=== PATIENT | female | born 1950 | race Caucasian/White ===

== ENCOUNTER → 2020-01-03 15:20 | Outpatient (CLI) | payer MEDICARE, BC, SELFPAY ==
--- NOTE | 2020-01-03 15:33 | XR_ITS ---
PROCEDURE: XR KNEE RT 3V CLINICAL INDICATION: RT KNEE PAIN COMPARISON: No exams were available for comparison FINDINGS: No fracture or dislocation. No lytic or blastic change. There is normal mineralization. There are mild osteoarthritic changes of the right knee involving all 3 compartments with small suprapatellar effusion. A faint calcific density overlies the lateral aspect of the medial compartment consistent with a loose body which is felt to be along the posterior aspect of the knee joint on the lateral view measuring 7 mm. Other findings:None. IMPRESSION: Mild osteoarthritis with suspected loose body posteriorly and medially Dictated by: Brijesh Weber MD 01/03/2020 16:07 Electronically signed by Brijesh Weber MD in [place] 01/03/2020 16:07
--- NOTE | 2020-01-03 15:33 | XR_ITS ---
PROCEDURE: XR HIP RT 2-3V W/PELVIS CLINICAL INDICATION: RT HIP PAIN COMPARISON: No exams were available for comparison FINDINGS: There are mild osteoarthritic changes of both hips as seen on the AP view of the pelvis along with osteitis pubis and degenerative disc disease with facet arthritic change at L5-S1. No fracture or dislocation. No lytic or blastic change. There are multiple pelvic phleboliths. IMPRESSION: Osteoarthritis of the hips Dictated by: Brijesh Weber MD 01/03/2020 16:05 Electronically signed by Brijesh Weber MD in [place] 01/03/2020 16:05
== END ==
PROVIDERS: PCP Family Medicine; Visit Provider Family Medicine
DX: M25.551 Pain in right hip (principal); M25.561 Pain in right knee
CPT/HCPCS: 73502; 73562

== ENCOUNTER → 2020-01-18 12:52 | Outpatient (CLI) | payer MEDICARE, BC, SELFPAY ==
--- NOTE | 2020-01-18 12:59 | XR_ITS ---
PROCEDURE: XR KNEE RT 4V CLINICAL INDICATION: Knee pain COMPARISON: XR KNEE RT 3V from 01/03/2020 FINDINGS: No fracture or dislocation. No lytic or blastic change. There is normal mineralization. There are mild osteoarthritic changes of the medial compartment and patellofemoral joint. No acute fracture or dislocation. A small calcific density is present superior to the tibial spines suggesting a loose body. This may be posterior. There is an additional calcific density overlying the lateral aspect of the medial compartment consistent with a loose body which may be posterior. Other findings:None. IMPRESSION: Osteoarthritis with loose intra-articular bodies Dictated by: Brijesh Weber MD 01/18/2020 14:18 Electronically signed by Brijesh Weber MD in [place] 01/18/2020 14:18
== END ==
PROVIDERS: PCP Family Medicine; Visit Provider Orthopaedic Surgery
DX: M25.561 Pain in right knee (principal)
CPT/HCPCS: 73564

== ENCOUNTER → 2020-10-08 09:54 | Outpatient (CLI) | payer MEDICARE, BC, SELFPAY ==
--- NOTE | 2020-10-08 09:58 | MM_ITS ---
PROCEDURE: MM DIG SCREENING MAMM BI W/CAD Digital Breast Tomosynthesis Included CLINICAL INDICATION: SCREENING There is no personal or family history of breast cancer. COMPARISON: MG MM MAMMO DIGITAL SCREENING W CAD BILAT from 09/08/2017 TECHNIQUE: Standard CC and MLO images and 3D Tomosynthesis was obtained. R2 CAD reviewed. FINDINGS: The glandular densities are seen throughout both breast primarily upper outer quadrants. There are couple of benign-appearing microcalcifications in each breast. There is a mole marker left breast. There is no new or suspicious lesion in either breast suspicious microcalcifications. There are small nodes in both axilla. IMPRESSION: Moderate breast density with no suspicious lesions seen BI-RAD Category: 2 Benign Finding(s) FOLLOW-UP: 1YR 1 Year Follow-up (A letter has been sent to the patient regarding results of the study.) Dictated by: Dr. Paramjit Lee MD 10/14/2020 08:20 Dr. Paramjit Lee MD in [place] 10/14/2020 08:20
--- NOTE | 2020-10-08 09:58 | XR_ITS ---
PROCEDURE: XR DEXA AXIAL SKELETON CLINICAL HISTORY: OSTEOPOROSIS SCREENING COMPARISON: No exams were available for comparison FINDINGS: The right hip BMD is 0.920 with a T-score of 0.6. The right hip BMD is 0.900 with a T-score of 0.5. The lumbar spine BMD is 1.143 with a T-score of 0.9. IMPRESSION: This patient is considered normal according to the World Health Organization criteria. Fracture risk is low. Based on these results a follow-up exam is recommended in 2 year. Dictated by: Brijesh Weber MD 10/09/2020 00:34 Brijesh Weber MD in [place] 10/09/2020 14:19
== END ==
PROVIDERS: PCP Family Medicine; Visit Provider Family Medicine
DX: Z12.31 Encounter for screening mammogram for malignant neoplasm of breast (principal); Z13.820 Encounter for screening for osteoporosis; Z78.0 Asymptomatic menopausal state
CPT/HCPCS: 77063; 77067; 77080

== ENCOUNTER → 2020-12-02 16:42 | Outpatient (CLI) | payer MEDICARE, BC, SELFPAY ==
--- NOTE | 2020-12-02 16:48 | XR_ITS ---
PROCEDURE INFORMATION: Exam: XR Lumbosacral Spine Exam date and time: 12/02/2020 4:48 PM Age: 70 years old Clinical indication: Sciatica; Right; Patient HX: Acute RT side sciatic pain; Additional info: Acute RT sided low back pain w/o sciatica TECHNIQUE: Imaging protocol: XR of the lumbosacral spine. Views: 4 or 5 views. COMPARISON: No relevant prior studies available. FINDINGS: Bones/joints: Degenerative facet joint arthropathy in the lower lumbar spine. At L4-L5 and L5-S1 there is disc height narrowing, endplate sclerosis and vacuum phenomenon. Soft tissues: Unremarkable. IMPRESSION: Degenerative changes in the lumbar spine but no acute fracture or malalignment.
== END ==
PROVIDERS: PCP Family Medicine; Visit Provider Family Medicine
DX: M54.5 Low back pain (principal)
CPT/HCPCS: 72110

== ENCOUNTER → 2020-12-24 16:40 | Outpatient (CLI) | payer MEDICARE, BC, SELFPAY ==
--- NOTE | 2020-12-24 16:44 | MR_ITS ---
PROCEDURE INFORMATION: Exam: MR Lumbar Spine Without Contrast Exam date and time: 12/24/2020 4:44 PM Age: 70 years old Clinical indication: Low back pain; Additional info: Lumbago. Lbp x2-3months. No recent trauma. No surgery. Bilateral leg pain. RT leg is worse. Prior x-ray 12-02-20 TECHNIQUE: Imaging protocol: Multiplanar magnetic resonance images of the lumbar spine without intravenous contrast. COMPARISON: CR XR LUMBAR SPINE MIN 4V 12/02/2020 4:53 PM FINDINGS: alignment is grossly normal. signal intensity within the bone marrow grossly normal. conus terminates at the mid aspect of L1. Soft tissues are unremarkable. Annular disc bulge and/or disc herniations diffusely Degenerative disc disease diffusely throughout the spine Severe neural foraminal narrowing L5-S1 Reactive endplate changes T11-T12. Hemangiomas T11. No marrow edema L1-L2: Broad-based annular disc bulge effaces the anterior aspect of the thecal sac. Right paracentral disc protrusion/extrusion extending superiorly within the anterior epidural space to the mid aspect of L1. L2-L3: Mild narrowing of the central canal secondary to facet hypertrophic changes, ligamentum flavum hypertrophic changes, and a broad-based annular bulge with a small central and left greater than right paracentral disc protrusion.Moderate facet hypertrophic changes and ligamentum flavum hypertrophic changes. . L3-L4: Mild narrowing of the central canal secondary to facet hypertrophic changes, ligamentum flavum hypertrophic changes, and a broad-based annular bulge with central disc protrusion. Disc lateralizes to the left greater than right.Moderate facet hypertrophic changes and ligamentum flavum hypertrophic changes. . L4-L5: Moderate degree of central canal narrowing secondary to facet hypertrophic changes, ligamentum flavum hypertrophic changes, and a broad-based annular bulge. Disc extends within the anterolateral recess bilaterally. Disc lateralizes to the left greater than right. Paucity of fat about the exiting nerve root on the left. It L5-S1: Broad-based annular disc bulge/disc protrusion. Disc and or osteophytic complex severely narrows both neural foramina left greater than right. IMPRESSION: Severe diffuse degenerative disc disease including mild narrowing of the central canal L2-L3, L3-L4 and moderate narrowing the central canal L4-L5. Please see above. Extruded disc L1-L2.
== END ==
PROVIDERS: PCP Family Medicine; Visit Provider Family Medicine
DX: M54.41 Lumbago with sciatica, right side (principal); M51.36 Other intervertebral disc degeneration, lumbar region; M47.816 Spondylosis without myelopathy or radiculopathy, lumbar region
CPT/HCPCS: 72148; 76376